=== PATIENT | female | born 1995 | race Caucasian/White ===

== ENCOUNTER 2024-11-14 18:21 | Emergency (ER) | payer MEDICAID, SELFPAY ==
--- NOTE | 2024-11-14 19:10 | ED_ITS ---
HPI - General Adult General Chief complaint: General Medical Stated complaint: body pain/sob Time Seen by Provider: 11/14/24 22:47 Source: patient Mode of arrival: ambulatory Limitations: no limitations History of Present Illness ED Provider: HPI narrative: Patient's history of hyperthyroidism not taking her methimazole for last 6 months comes here for sore throat fever tachycardic ranging in the 140s denies any chest pain no shortness a breath having severe sore throat lab workup done before my evaluation showed strep throat positive Related Data Previous Rx's ?Medication ?Instructions ?Recorded amoxicillin 875 mg-potassium 1 tab PO BID #20 tabs 11/15/24 clavulanate 125 mg tablet methimazole 10 mg tablet 10 mg PO DAILY #90 tabs 11/15/24 Allergies Allergy/AdvReac Type Severity Reaction Status Date / Time No Known Allergies Allergy Verified 11/14/24 19:16 Review of Systems 2 Review of Systems: Yes all other systems are reviewed and are negative PMFSH Social History Social History Advance Directives: No Advance Directives Information Provided: No Physical Exam ED Vital Signs: Vital Signs - 24 hr 11/14/24 19:13 11/14/24 22:23 11/15/24 00:25 Temperature 99.7 F 98.2 F Pulse Rate 132 H 120 H 120 H Respiratory Rate 18 16 22 H Blood Pressure 153/73 H 132/56 L 129/56 L Pulse Oximetry 98 97 99 Oxygen Delivery Method Room Air Room Air Room Air 11/15/24 00:26 11/15/24 03:12 11/15/24 03:18 Temperature 97.7 F 97.7 F Pulse Rate 124 H 107 H 107 H Respiratory Rate 14 14 Blood Pressure 129/56 L 109/50 L 109/50 L Pulse Oximetry 97 97 Oxygen Delivery Method Room Air Room Air BMI result Body Mass Index 20.0 Appearance: Alert. Oriented X3. No acute distress. ENT: Pharynx erythematous with exudates, Oral Mucosa moist Neck: Normal inspection. Neck supple. CVS: Normal rhythm tachycardic. Pulses normal. Respiratory: No respiratory distress. Equal air entry bilateral, no wheezing/rales/rhonchi Skin: Skin warm and dry. Normal skin color. Normal skin turgor. Extremities: No lower extremity edema. Neuro: Oriented X 3. Course Course Course Narrative: This is an RME performed by Anoop Ramirez CNP: Additional HPI, ROS, PE not included below will be deferred to primary provider. Patient is a 29 year old female who presents emergency department for evaluation of dizziness, body aches, sore throat, shortness of breath, nausea. On evaluation she has an erythematous posterior oropharynx with tonsillar hypertrophy bilaterally and white exudates, uvula is midline. She also admits to a history of hyperthyroidism states she has not been taking her medications for over a year she does not have them. She also states palpitations, tachycardic 130 Plan: Serum labs including thyroid function, EKG due to tachycardia, viral serologies and group a strep, monoscreen Medications Administered Discontinued Medications Generic Name Dose Route Start Last Admin Trade Name Freq PRN Reason Stop Dose Admin Ceftriaxone Sodium 1 gm 11/14/24 22:47 11/14/24 23:51 Ceftriaxone Sodium 1 Gm Vial IVPUSH 11/14/24 22:48 1 gm ONCE ONE Administration Sodium Chloride 1,000 mls @ 999 mls/hr 11/14/24 22:47 11/14/24 23:45 Ns IV 11/14/24 23:47 999 mls/hr .Q1H1M ONE Administration Ketorolac Tromethamine 30 mg 11/14/24 22:49 11/14/24 23:51 Ketorolac Tromethamine 30 Mg/Ml Vial IVPUSH 11/14/24 22:50 30 mg ONCE ONE Administration Metoprolol Tartrate 25 mg 11/14/24 23:57 11/15/24 00:26 Metoprolol Tartrate 25 Mg Tablet PO 11/14/24 23:58 25 mg ONCE ONE Administration Protocol Medical Decision Making Lab Data 11/14/24 19:44 11/14/24 19:44 Labs: Lab Results 11/14/24 Range/Units 19:44 WBC 15.5 H (4.8-10.8) X10*3/uL RBC 4.82 (4.20-5.50) X10*6/uL Hgb 13.1 (12.0-16.0) g/dl Hct 37.3 (37.0-47.0) % MCV 77.4 L (80.0-98.0) fL MCH 27.2 (27.0-33.0) pg MCHC 35.1 H (31.0-35.0) g/dl RDW 12.6 (11.0-16.0) % Plt Count 148 L (160-400) X10*3/uL MPV 10.1 (9.4-12.3) fL Immature Gran % (Auto) 0.3 (0.0-0.4) % Neut % (Auto) 79.6 H (45-73) % Lymph % (Auto) 12.3 L (20-40) % [place] % (Auto) 7.2 (2-11) % Eos % (Auto) 0.5 (0-4) % Baso % (Auto) 0.1 (0-2) % Lymph # (Auto) 1.9 (1.2-4.9) X10*3/uL [place] # (Auto) 1.1 (0.1-1.2) X10*3/uL Eos # (Auto) 0.1 (0.0-0.4) X10*3/uL Baso # (Auto) 0.0 (0.0-0.2) X10*3/uL Abs Immat Gran (auto) 0.04 H (0.00-0.03) X10*3/uL Absolute Neuts (auto) 12.4 H (2.0-8.3) x10*3/uL Absolute Nucleated RBC 0.000 (0.0-0.012) X10*3/uL Nucleated RBC % (auto) 0.0 (0.0-0.2) /100WBC PT 13.9 H (10.9-12.4) SEC INR 1.2 H (0.9-1.1) Sodium 136 (135-145) mmol/L Potassium 4.1 (3.3-5.1) mmol/L Chloride 106 (96-108) mmol/L Carbon Dioxide 22 (22-29) mmol/L Anion Gap 12 (12-20) BUN 10 (9-16) mg/dL Creatinine 0.43 L (0.5-1.4) mg/dL Estim Creat Clear Calc 147.0 Estimated GFR > 60 Random Glucose 93 (60-115) mg/dL Calcium 9.1 (8.4-10.2) mg/dL Total Bilirubin 0.7 (0.0-1.0) mg/dL AST 16 (5-31) U/L ALT 18 (0-31) U/L Alkaline Phosphatase 138 H (39-117) U/L Total Protein 7.0 (6.5-8.0) g/dL Albumin 3.8 (3.5-5.0) g/dL TSH < 0.01 L (0.32-4.0) uIU/mL Free T4 2.79 H (0.71-1.85) ng/dL Monoscreen Negative (Negative) Influenza Type A (PCR) NEGATIVE (Negative) Influenza Type B (PCR) NEGATIVE (Negative) RSV RNA Qual (PCR) NEGATIVE (Negative) SARS-CoV-2 RNA (RT-PCR) NEGATIVE (Negative) S. pyogenes GrpA CUONG Positive A (Negative) Discharge Plan Discharge Clinical Impression: Acute streptococcal pharyngitis Patient Disposition: Home, Self-Care Instructions: Strep Throat (ED) Additional Instructions: Drink plenty of fluids Take antibiotics as prescribed Tylenol/Motrin for fever/ pain Start taking your thyroid medication Prescriptions: New amoxicillin-pot clavulanate 875-125 mg tablet 1 tab PO BID Qty: 20 0RF methimazole 10 mg tablet 10 mg PO DAILY Qty: 90 2RF Interventions: ED Discharge Assessment Last Done: 11/15/24 03:18 Discharge Date/Time: 11/15/24 03:20 Print Language: Nigerien
[2024-11-14 19:13] VITALS: BP 153/73; PULSE 132; RESP 18; TEMP 37.6; O2SAT 98
--- NOTE | 2024-11-14 19:16 | ECG_ITS ---
Test Reason : tachycardia Blood Pressure : */* mmHG Vent. Rate : 130 BPM Atrial Rate : 130 BPM P-R Int : 116 ms QRS Dur : 72 ms QT Int : 314 ms P-R-T Axes : 29 29 31 degrees QTcB Int : 462 ms Sinus tachycardia Otherwise normal ECG No previous ECGs available Referred By: Minnie Ramirez Electronically Signed By: OBED BRODERICK
[2024-11-14 19:50] LABS: MANUAL DIFF FLAG NO
[2024-11-14 19:52] LABS: Basophils Percent Auto 0.1 % (0-2); Eosinophils Absolute Auto 0.1 X10*3/uL (0.0-0.4); Eosinophils Percent Auto 0.5 % (0-4); Hematocrit 37.3 % (37.0-47.0); Hemoglobin 13.1 g/dl (12.0-16.0); Imm Gran Abs Auto 0.04 X10*3/uL (0.00-0.03); Imm Gran Pct Auto 0.3 % (0.0-0.4); Lymphocytes Absolute Auto 1.9 X10*3/uL (1.2-4.9); Lymphocytes Percent Auto 12.3 % (20-40); Mean Corpuscular HGB Conc 35.1 g/dl (31.0-35.0); Mean Corpuscular Hemoglobin 27.2 pg (27.0-33.0); Mean Corpuscular Volume 77.4 fL (80.0-98.0); Mean Platelet Volume 10.1 fL (9.4-12.3); Monocytes Absolute Auto 1.1 X10*3/uL (0.1-1.2); Monocytes Percent Auto 7.2 % (2-11); Neutrophils Absolute Auto 12.4 x10*3/uL (2.0-8.3); Neutrophils Percent Auto 79.6 % (45-73); Platelet Count 148 X10*3/uL (160-400); Red Blood Count 4.82 X10*6/uL (4.20-5.50); Red Cell Distribution Width 12.6 % (11.0-16.0); White Blood Count 15.5 X10*3/uL (4.8-10.8)
[2024-11-14 19:57] LABS: INTERNATIONAL NORM RATIO 1.2 (0.9-1.1); Prothrombin Time 13.9 SEC (10.9-12.4)
[2024-11-14 19:59] LABS: IDNOW Serial# 08D9AD1C; Strep A Nucleic Acid Positive (Negative)
[2024-11-14 20:06] LABS: Alanine Aminotransferase 18 U/L (0-31); Albumin Level 3.8 g/dL (3.5-5.0); Alkaline Phosphatase 138 U/L (39-117); Anion Gap 12 (12-20); Aspartate Amino Transferase 16 U/L (5-31); Bilirubin Total 0.7 mg/dL (0.0-1.0); Blood Urea Nitrogen 10 mg/dL (9-16); Calcium 9.1 mg/dL (8.4-10.2); Carbon Dioxide 22 mmol/L (22-29); Chloride 106 mmol/L (96-108); Estimated Glomerular Filt Rate > 60; Glucose Random 93 mg/dL (60-115); Monotest Negative (Negative); Potassium 4.1 mmol/L (3.3-5.1); Sodium 136 mmol/L (135-145)
[2024-11-14 20:29] LABS: Influenza A PCR NEGATIVE (Negative); Influenza B PCR NEGATIVE (Negative); Resp Syncy Virus RNA Qual PCR NEGATIVE (Negative); SARS COV2 PCR INHOUSE NEGATIVE (Negative); TSH reflex Free T4 < 0.01 uIU/mL (0.32-4.0)
[2024-11-14 21:00] LABS: Free T4 (Free Thyroxine) 2.79 ng/dL (0.71-1.85)
[2024-11-14 22:23] VITALS: BP 132/56; PULSE 120; RESP 16; TEMP 36.8; O2SAT 97
[2024-11-14] MEDS: 0.9 % Sodium Chloride 1,000 ML 999 ML IV (23:45)
[2024-11-14] MEDS: cefTRIAXone sodium 1 GM VIAL IVPUSH (23:51)
[2024-11-14] MEDS: Ketorolac Tromethamine 30 MG/ML VIAL IVPUSH (23:51)
[2024-11-15 00:25] VITALS: BP 129/56; PULSE 120; RESP 22; O2SAT 99
[2024-11-15 00:26] VITALS: BP 129/56; PULSE 124
[2024-11-15] MEDS: Metoprolol Tartrate 25 MG TABLET PO (00:26)
[2024-11-15 03:12] VITALS: BP 109/50; PULSE 107; RESP 14; TEMP 36.5; O2SAT 97
[2024-11-15 03:18] VITALS: BP 109/50; PULSE 107; RESP 14; TEMP 36.5; O2SAT 97
== END 2024-11-15 03:20 | disposition home or self-care (01) ==
PROVIDERS: Nurse Practitioner Family; Emergency Provider Internal Medicine
DX: J02.0 Streptococcal pharyngitis (principal); M79.10 Myalgia, unspecified site; R06.02 Shortness of breath; R00.0 Tachycardia, unspecified; R50.9 Fever, unspecified; Z03.818 Encounter for observation for suspected exposure to other biological agents ruled out; Z79.899 Other long term (current) drug therapy
CPT/HCPCS: 0241U; 36415; 80053; 84439; 84443; 85025; 85610; 86308; 87651; 93005; 99285; J0696; J1885

== ENCOUNTER → 2024-11-14 19:16 | Outpatient (BNV) | payer MEDICAID, SELFPAY | PROVIDERS: Emergency Provider Internal Medicine; Visit Provider Internal Medicine | DX: R00.0 Tachycardia, unspecified (principal) | CPT/HCPCS: 93010 ==